=== PATIENT | male | born 1960 | race Caucasian/White ===

== ENCOUNTER 2020-08-01 02:45 | Inpatient (IN) | payer OTHER ==
[2020-08-01] VITALS (7 sets, daily range): BP systolic 127–173; BP diastolic 70–86
[~2020-08-01] VITALS: Ht 175.3 cm; Wt 85.7 kg
[2020-08-01] MEDS ORDERED: ONDANSETRON PF 4 MG/2 ML VIAL. IVP PRN (03:30)
[2020-08-01] MEDS: IV NORMAL SALINE 1000ML BAG 1,000 ML IV SCH ×3 (03:56→23:23)
[2020-08-01] MEDS: MORPHINE SULFATE 2 MG/ML VIAL. IV PRN ×4 (03:58→20:17)
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
[2020-08-01] MEDS ORDERED: HALOPERIDOL LACTATE 5 MG/ML VIAL. IVP PRN (05:15)
[2020-08-01] MEDS ORDERED: diphenhydrAMINE 50 MG/ML VIAL IVP PRN (05:15)
[2020-08-01] MEDS ORDERED: no home (05:46)
--- NOTE | 2020-08-01 06:57 | NUR ---
Called 's and 's answering services and notified them about consults and no call back yet. Notified day nurse to f/u.
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
[2020-08-01] MEDS: MULTIVIT INFUSN,ADULT 4,VIT K 10 ML, THIAMINE INJ 100 MG, FOLIC ACID INJ 1 MG in IV NOR... IV SCH (09:58)
[2020-08-01 10:22] LABS: BASO # 0.1 x10^3/uL (0.0-0.2); BASO % 1 % (0-3); EOS # 0.3 x10^3/uL (0.0-0.7); EOS % 3 % (0-3); HEMATOCRIT 42.1 % (39.0-53.0); HEMOGLOBIN 14.3 g/dL (13.0-17.5); LYMPH # 1.5 x10^3/uL (1.0-4.8); LYMPH % 19 % (24-48); MEAN CORPUSCULAR HEMOGLOBIN 35 pg (25-35); MEAN CORPUSCULAR HGB CONC 34 g/dL (31-37); MEAN CORPUSCULAR VOLUME 103 fL (79-100); MONO % 13 % (0-9); NEUT # 5.1 x10^3/uL (1.8-7.7); NEUT % 64 % (31-73); PLATELET COUNT 131 x10^3/uL (140-400)
[2020-08-01] MEDS ORDERED: LIDOCAINE 1%/EPI 1:100,000 20 ML VIAL. ONE (10:44)
[2020-08-01 10:46] LABS: CALCIUM 7.6 mg/dL (8.5-10.1); CREATININE 0.7 mg/dL (0.7-1.3); GFR 114.6; POTASSIUM 4.2 mmol/L (3.5-5.1)
[2020-08-01 10:53] LABS: ALBUMIN 2.8 g/dL (3.4-5.0); ALBUMIN/GLOBULIN RATIO 0.7 (1.0-1.7); TOTAL BILIRUBIN 0.5 mg/dL (0.2-1.0); TOTAL PROTEIN 6.7 g/dL (6.4-8.2)
[2020-08-01] MEDS ORDERED: IOHEXOL 300 MG/ML 100ML VIAL. IV ONE (11:00)
[2020-08-01] MEDS ORDERED: CONTRAST GIVEN. MC PRN (11:00)
[2020-08-01] MEDS ORDERED: KETAMINE HCL IN NACL, ISO-OSM 50 MG/5 ML SYRINGE ONE (11:40)
[2020-08-01] MEDS ORDERED: PROPOFOL 10 MG/ML (20ML) VIAL. IV ONE (11:41)
[2020-08-01] MEDS ORDERED: SEVOFLURANE 16 TO 30 MINUTES. IH ONE (11:41)
[2020-08-01 11:45] LABS: BILIRUBIN,URINE NEGATIVE (NEG); CLARITY,URINE CLEAR; COLOR,URINE YELLOW; NITRITE,URINE NEGATIVE (NEG); PH,URINE 5.5 (<5.0-8.0); PROTEIN,URINE NEGATIVE (NEG-TRACE); UROBILINOGEN,URINE 0.2 mg/dL (0.2 mg/dL)
--- NOTE | 2020-08-01 11:46 | NUR ---
SS following for discharge planning. SS reviewed pt chart and discussed with pt RN. Pt is from home and is currently requiring oxygen PRN. COVID19 positive. Pt has ETOH. CIWA protocol in place. Wound Care, Dr. Young, and Dr. Steel consulted. PAT team referral made for ETOH. Marlena MOORE, to follow.
[2020-08-01] MEDS ORDERED: fentaNYL PF VIAL 100 MCG/2 ML VIAL ONE ×2 (11:56→12:35)
[2020-08-01 11:57] LABS: BARBITURATES NEG (NEG); BENZODIAZEPINES NEG (NEG); CANNABINOIDS NEG (NEG); COCAINE POS (NEG); METHADONE NEG (NEG); OPIATES POS (NEG); PHENCYCLIDINE NEG (NEG)
[2020-08-01 11:58] LABS: AMPHETAMINE/METHAMPHETAMINE NEG (NEG)
[2020-08-01] MEDS ORDERED: BUPIVACAINE-EPI 0.5% 30 ML VIAL KIT. ONE (12:02)
[2020-08-01 12:04] LABS: BACTERIA,URINE 0 /HPF (0-FEW); RBC,URINE 0 /HPF (0-2); WBC,URINE 0 /HPF (0-4)
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
[2020-08-01] MEDS ORDERED: ceFAZolin SODIUM IV Push 1 GM VIAL. IVP ONE ×2 (12:25)
[2020-08-01] MEDS ORDERED: DEXAMETHASONE SOD PHOS 4 MG/ML VIAL ONE (12:29)
[2020-08-01] MEDS ORDERED: ONDANSETRON PF 4 MG/2 ML VIAL. ONE (12:29)
[2020-08-01] MEDS ORDERED: PROCHLORPERAZINE 10 MG/2 ML VIAL. ONE (12:35)
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
[2020-08-01] MEDS ORDERED: fentaNYL PF VIAL 100 MCG/2 ML VIAL IVP PRN ×2 (13:15)
[2020-08-01] MEDS ORDERED: PROCHLORPERAZINE 10 MG/2 ML VIAL. IVP PRN (13:15)
[2020-08-01] MEDS ORDERED: MORPHINE SULFATE 2 MG/ML VIAL. IVP PRN (13:15)
[2020-08-01] MEDS ORDERED: HYDROmorphone 2 MG/ML VIAL IVP PRN (13:15)
[2020-08-01] MEDS ORDERED: IV RINGERS,LACTATED 1000ML 1,000 ML IV SCH (13:15)
--- NOTE | 2020-08-01 13:25 | PDOC ---
Provider Note Date of Service: DATE: 08/01/20 TIME: 13:22 Provider Note patient out of room in OR at 1230 imaging reviewed, probable occipital condyle fracture will need MRI Keep in cervical collar D/W RN Justifications for Admission Other Justification VALERIE MANNING MD Aug 01, 2020 13:25
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
--- NOTE | 2020-08-01 16:23 | NUR ---
TERESA following for discharge planning. Met with Javi from PAT. Pt in a procedure so he will follow up tomorrow, 08/02. Pt continues to require 02 PRN. SW following.
[2020-08-02 03:30] VITALS: BP 140/81
[2020-08-02 06:55] LABS: ALBUMIN 2.8 g/dL (3.4-5.0); ALBUMIN/GLOBULIN RATIO 0.7 (1.0-1.7); CALCIUM 7.7 mg/dL (8.5-10.1); CREATININE 0.9 mg/dL (0.7-1.3); GFR 85.8; POTASSIUM 4.4 mmol/L (3.5-5.1); TOTAL BILIRUBIN 0.7 mg/dL (0.2-1.0)
[2020-08-02 07:00] VITALS: BP 155/90
[2020-08-02 07:22] LABS: HEMATOCRIT 42.4 % (39.0-53.0); HEMOGLOBIN 14.7 g/dL (13.0-17.5); RED BLOOD COUNT 4.11 x10^6/uL (4.30-5.70); RED CELL DISTRIBUTION WIDTH 12.8 % (11.5-14.5); WHITE BLOOD COUNT 9.4 x10^3/uL (4.0-11.0)
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
[2020-08-02] MEDS: IV NORMAL SALINE 1000ML BAG 1,000 ML IV SCH ×2 (10:00→20:10)
[2020-08-02] MEDS: MULTIVIT INFUSN,ADULT 4,VIT K 10 ML, THIAMINE INJ 100 MG, FOLIC ACID INJ 1 MG in IV NOR... IV SCH (10:19)
[2020-08-02] MEDS: MORPHINE SULFATE 2 MG/ML VIAL. IV PRN ×4 (10:19→23:56)
[2020-08-02] MEDS: NICOTINE 21MG PATCH. TD SCH (10:19)
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
[2020-08-02] MEDS ORDERED: HYDROcodone/APAP 5/325MG 1 TAB TABLET PO PRN (12:45)
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
[2020-08-02 15:00] VITALS: BP 144/89
--- NOTE | 2020-08-02 15:10 | RAD ---
MRI BRAIN WO Date: 08/02/2020 11:34 AM Indication: please redo and include ligaments of C2, occipital condyle fracture Comparison: MRI cervical spine and MRI brain 08/01/2020. Technique: Multiplanar multisequence MRI of the craniocervical junction was performed without intrave nous contrast. Findings: There is abnormal signal in the left alar ligament and in the posterior atlantooccipital membrane on the left. Transverse ligament, tectorial membrane, and anterior atlantooccipital membrane are intact. Anterior longitudinal ligament, posterior longitudinal ligament, and ligamentum flavum are intact. Acute fracture of the left occipital condyle with impaction. Acute fracture of C1 involving the left lateral mass superior articulating facet along its posterior aspect, with a displaced articular surfa ce fracture fragment. Please see recent MRI brain and MRI C-spine reports for evaluation of the remainder of the intracrani al and cervical structures. IMPRESSION: 1. Abnormal signal in the left alar ligament and posterior atlantooccipital membrane on the left, con sistent with ligamentous injury. 2. Unchanged left occipital condyle and left C1 articulating facet fractures. Electronically signed by: Dontrell Cornell MD (08/02/2020 3:08 PM) [id number]
--- NOTE | 2020-08-02 15:27 | NUR ---
TERESA following for discharge planning today. TERESA spoke with RN and reviewed chart. Malia from PAT attempted to meet with pt. Pt off the floor for a procedure. PAT to follow up 08/03. Pt now on room air. PT/OT to evaluate. SW following.
--- NOTE | 2020-08-02 15:40 | NUR ---
Wound Care Wound Type/Assessment: Pt seen for wound care consultation re: a head laceration and left elbow skin tear/laceration. Pt's forehead sutured closed in surgery, will defer to General Surgeon for dressing change orders, surgical dressing left in place at this time. Left elbow skin tear cleaned, dusky red, superficial, no fluctuance or periwound redness noted. No other wounds noted on full skin inspection. Treatment Recommendations/Plan: L elbow dressed with Xeroform gauze, covered with Aquacel foam, recommend changing every 3-4 days. Education provided: to pt re: frequent repositioning to prevent pressure ulcers. Offloading surface/device: pillows, C-collar Recommended Referrals/Tests: n/a Discharge Recommendations for dressings: see treatment plan above Pt upset he cannot open his mouth enough to eat anything, offered pt a protein milk shake from dietary. Pt wanted to try it, order placed with Gloria in dietary. POC discussed with KRYSTLE Granados.
[2020-08-02 19:00] VITALS: BP 162/92
[2020-08-02 23:00] VITALS: BP 167/93
[2020-08-03 03:00] VITALS: BP 167/93
[2020-08-03 04:18] LABS: HEMATOCRIT 42.1 % (39.0-53.0); HEMOGLOBIN 14.2 g/dL (13.0-17.5); RED BLOOD COUNT 4.06 x10^6/uL (4.30-5.70); RED CELL DISTRIBUTION WIDTH 12.8 % (11.5-14.5); WHITE BLOOD COUNT 9.5 x10^3/uL (4.0-11.0)
[2020-08-03 04:42] LABS: ALBUMIN 2.6 g/dL (3.4-5.0); ALBUMIN/GLOBULIN RATIO 0.7 (1.0-1.7); CALCIUM 7.5 mg/dL (8.5-10.1); CREATININE 0.8 mg/dL (0.7-1.3); GFR 98.3; POTASSIUM 3.7 mmol/L (3.5-5.1); TOTAL BILIRUBIN 0.8 mg/dL (0.2-1.0); TOTAL PROTEIN 6.5 g/dL (6.4-8.2)
[2020-08-03] MEDS: IV NORMAL SALINE 1000ML BAG 1,000 ML IV SCH ×2 (06:00→19:27)
[2020-08-03 07:00] VITALS: BP 157/79
[2020-08-03] MEDS: MULTIVIT INFUSN,ADULT 4,VIT K 10 ML, THIAMINE INJ 100 MG, FOLIC ACID INJ 1 MG in IV NOR... IV SCH (09:12)
[2020-08-03] MEDS: NICOTINE 21MG PATCH. TD SCH (09:13)
[2020-08-03] MEDS: MORPHINE SULFATE 2 MG/ML VIAL. IV PRN ×2 (09:36→19:27)
[2020-08-03 11:00] VITALS: BP 176/93
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
[2020-08-03 15:00] VITALS: BP 176/98
--- NOTE | 2020-08-03 15:52 | NUR ---
SW following for discharge planning today. SW spoke with RN and reviewed chart. Pt is COVID positive. Pt seen by Javi with PAT today. Pt provided with resources for ETOH. Pt now requiring 2l 02. Possible HH referral. PT/OT to evaluate. SW following.
[2020-08-03 19:00] VITALS: BP 163/81
[2020-08-03 23:00] VITALS: BP 160/73
[2020-08-04 03:00] VITALS: BP 169/94
[2020-08-04] MEDS: IV NORMAL SALINE 1000ML BAG 1,000 ML IV SCH ×3 (04:05→20:34)
[2020-08-04] MEDS: MORPHINE SULFATE 2 MG/ML VIAL. IV PRN ×3 (05:41→20:35)
[2020-08-04 07:00] VITALS: BP 176/99
[2020-08-04] MEDS: NICOTINE 21MG PATCH. TD SCH (08:59)
[2020-08-04] MEDS: MULTIVITAMIN with MINERAL TABLET. PO SCH (08:59)
[2020-08-04] MEDS: THIAMINE 100 MG TABLET. PO SCH (08:59)
[2020-08-04] MEDS: FOLIC ACID 1 MG TABLET. PO SCH (09:00)
[2020-08-04] MEDS: HYDROcodone/APAP 5/325MG 1 TAB TABLET PO PRN ×3 (09:01→17:57)
[2020-08-04 11:00] VITALS: BP 149/91
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
[2020-08-04 15:00] VITALS: BP 167/98
[2020-08-04] MEDS ORDERED: ENOXAPARIN 40 MG/0.4 ML SYRINGE. SQ SCH (17:00)
[2020-08-04 19:00] VITALS: BP 162/92
[2020-08-04 23:00] VITALS: BP 150/68
[2020-08-05] MEDS: MORPHINE SULFATE 2 MG/ML VIAL. IV PRN (02:58)
[2020-08-05 03:00] VITALS: BP 157/94
[2020-08-05] MEDS: IV NORMAL SALINE 1000ML BAG 1,000 ML IV SCH (03:01)
[2020-08-05 07:00] VITALS: BP 156/79
[2020-08-05] MEDS: NICOTINE 21MG PATCH. TD SCH (08:32)
[2020-08-05] MEDS: MULTIVITAMIN with MINERAL TABLET. PO SCH (08:33)
[2020-08-05] MEDS: THIAMINE 100 MG TABLET. PO SCH (08:33)
[2020-08-05] MEDS: FOLIC ACID 1 MG TABLET. PO SCH (08:33)
[2020-08-05] MEDS: HYDROcodone/APAP 5/325MG 1 TAB TABLET PO PRN ×2 (08:33→13:27)
[2020-08-05] MEDS ORDERED: ZINC SULFATE 220 MG CAPSULE. PO SCH (09:00)
[2020-08-05] MEDS ORDERED: HYDR-2761 PO (10:22)
[2020-08-05 11:00] VITALS: BP 165/96
--- NOTE | 2020-08-05 14:30 | NUR ---
PT DISCHARGED TO HOME WITH SELF CARE. DISCUSSED DISCHARGE INSTRUCTIONS AND CARE WITH PT AND SISTER. HE DOES HAVE A LARGE GROUP OF BROTHERS AND SISTERS TO ASSIST HIM. HE WAS INSTRUCTED TO SELF ISOLATE UNTIL 08/11 FOR COVID. VERBALIZED UNDERSTANDING. TRANSPORTATION PROVIDED BY FAMILY.
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
== END 2020-08-05 14:30 | disposition home or self-care (01) | DRG 604 ==
LOC: 6 SOUTH 02:45
PROVIDERS: ADMIT Internal Medicine; ATTEND Internal Medicine
PROC: 0JQ13ZZ Repair Face Subcutaneous Tissue and Fascia, Percutaneous Approach (ICD-10-PCS; principal; 2020-08-01 12:15)
DX: S01.81XA Laceration without foreign body of other part of head, initial encounter (principal); U07.1 COVID-19; S02.113A Unspecified occipital condyle fracture, initial encounter for closed fracture; S12.040A Displaced lateral mass fracture of first cervical vertebra, initial encounter for closed fracture; S22.32XA Fracture of one rib, left side, initial encounter for closed fracture; F10.10 Alcohol abuse, uncomplicated; F11.10 Opioid abuse, uncomplicated; F17.210 Nicotine dependence, cigarettes, uncomplicated; T14.8XXA Other injury of unspecified body region, initial encounter; F14.10 Cocaine abuse, uncomplicated; S01.01XA Laceration without foreign body of scalp, initial encounter; S51.811A Laceration without foreign body of right forearm, initial encounter; V89.2XXA Person injured in unspecified motor-vehicle accident, traffic, initial encounter; W22.09XA Striking against other stationary object, initial encounter; Y92.410 Unspecified street and highway as the place of occurrence of the external cause; Z85.118 Personal history of other malignant neoplasm of bronchus and lung; Z88.0 Allergy status to penicillin; Z85.828 Personal history of other malignant neoplasm of skin; Y93.89 Activity, other specified; Y99.8 Other external cause status
CPT/HCPCS: 36415; 70551; 71260; 72141; 74177; 80053; 80307; 81001; 85025; 85027; 87426; A4657; A4930; A6443; G0480; J0690; J1100; J1650; J2060; J2270; J2405; J2704; J3010; J3411; J3490; J7030; Q9967; 97110-GP; 97530-GP; 97535-GO; G0378